=== PATIENT | female | born 1990 | race Two or more races ===

== ENCOUNTER → 2018-02-06 | Outpatient (CLI) | payer BC ==
[2018-02-06 10:19] LABS: Basophils # (auto) 0 uL; Basophils % (auto) 0.5 % (0.0-2.0); Eosinophils # (auto) 0.2 uL; Eosinophils % (auto) 2.1 % (0.0-7.0); Hematocrit 44.4 % (36.0-46.0); Hemoglobin 14.8 g/dL (12.2-16.2); Lymphocytes # (auto) 2.7 uL; Lymphocytes % (auto) 32.9 % (10.0-50.0); Mean Corpuscular Hemoglobin 29.9 pg (28.0-32.0); Mean Corpuscular Hgb Conc. 33.2 g/dL (32.0-36.0); Monocytes # (auto) 0.5 uL; Monocytes % (auto) 6.3 % (0.0-12.0); Neutrophils # (auto) 4.8 uL; Neutrophils % (auto) 58.2 % (37.0-80.0); Nucleated Red Blood Cells % 0.1 %; Platelet Count (auto) 267 10^3/uL (140-450); Red Blood Cells 4.94 10^6/uL (4.0-5.20); Red Cell Distribution Width 13.3 % (11.8-14.3); White Blood Cell 8.3 10^3/uL (4.4-10.8)
[2018-02-06 10:58] LABS: Follicle Stimulating Hormone 6.31 IU/L (SEE BELOW); Leuteinizing Hormone 7.8 IU/L; T3 Total 1.37 ng/mL (0.60-1.81)
[2018-02-06 12:12] LABS: Beta HCG, Quantitative < 1 mlU/mL (1-3); Thyroid Stimulating Hormone 2.79 uIU/mL (0.358-3.74)
[2018-02-06 13:39] LABS: Albumin 4.1 g/dL (3.4-5.0); BUN/Creatinine Ratio 9.4; Bilirubin, Total 0.5 mg/dL (0.2-1.0); Calcium 8.5 mg/dL (8.5-10.1); Potassium 4.2 mmol/L (3.5-5.1); Total Protein 8.7 g/dL (6.4-8.2)
== END | disposition home or self-care (01) ==
LOC: LAB 09:38
PROVIDERS: ATTEND Internal Medicine
DX: N91.1 Secondary amenorrhea (principal); E66.9 Obesity, unspecified; N60.29 Fibroadenosis of unspecified breast; Z83.3 Family history of diabetes mellitus; Z87.440 Personal history of urinary (tract) infections
CPT/HCPCS: 36415; 80053; 80061; 82306; 82670; 83001; 83002; 84443; 84480; 84702; 85025

== ENCOUNTER → 2018-03-17 | Outpatient (CLI) | payer BC ==
[2018-03-17 11:14] LABS: Albumin 3.8 g/dL (3.4-5.0); BUN/Creatinine Ratio 13.9; Bilirubin, Total 0.4 mg/dL (0.2-1.0); Calcium 8.5 mg/dL (8.5-10.1); Potassium 4.3 mmol/L (3.5-5.1); Total Protein 8.1 g/dL (6.4-8.2)
== END | disposition home or self-care (01) ==
LOC: LAB 10:02
PROVIDERS: ATTEND Internal Medicine
DX: R74.0 Nonspecific elevation of levels of transaminase and lactic acid dehydrogenase [LDH] (principal)
CPT/HCPCS: 36415; 80053

== ENCOUNTER → 2018-08-08 | Outpatient (CLI) | payer BC | END | disposition home or self-care (01) | LOC: LAB 14:59 | PROVIDERS: ATTEND Internal Medicine | DX: Z34.81 Encounter for supervision of other normal pregnancy, first trimester (principal); Z3A.01 Less than 8 weeks gestation of pregnancy | CPT/HCPCS: 36415; 84702 ==

== ENCOUNTER 2018-08-31 10:51 | Emergency (ER) | payer BC ==
[~2018-08-31] VITALS: Ht 152.4 cm; Wt 73.2 kg
[2018-08-31 12:08] LABS: Basophils # (auto) 0.1 uL; Basophils % (auto) 0.5 % (0.0-2.0); Eosinophils # (auto) 0.2 uL; Eosinophils % (auto) 2.3 % (0.0-7.0); Hemoglobin 14.1 g/dL (12.2-16.2); Lymphocytes # (auto) 1.9 uL; Lymphocytes % (auto) 17.7 % (10.0-50.0); Mean Corpuscular Hgb Conc. 33.5 g/dL (32.0-36.0); Mean Corpuscular Volume 89.6 fL (80.0-100.0); Monocytes # (auto) 0.7 uL; Neutrophils # (auto) 7.7 uL; Neutrophils % (auto) 72.5 % (37.0-80.0); Platelet Count (auto) 268 10^3/uL (140-450); Red Blood Cells 4.69 10^6/uL (4.0-5.20); Red Cell Distribution Width 13.8 % (11.8-14.3); White Blood Cell 10.6 10^3/uL (4.4-10.8)
[2018-08-31 12:15] LABS: Potassium 3.5 mmol/L (3.5-5.1)
[2018-08-31 12:25] LABS: Albumin 3.4 g/dL (3.4-5.0); BUN/Creatinine Ratio 11.1; Bilirubin, Total 0.3 mg/dL (0.2-1.0); Calcium 8.5 mg/dL (8.5-10.1)
[2018-08-31 12:42] LABS: INR 0.95 (0.9-1.15); Partial Thromboplastin Time 26.6 sec (23.78-33.04); Prothrombin Time 10.2 sec (9.27-12.13)
[2018-08-31 13:26] LABS: Urine Bacteria MOD /hpf (None Seen); Urine Blood 2+ /uL (Negative); Urine Specific Gravity 1.011 (1.001-1.035); Urine WBC 60 /hpf (0 - 5)
[2018-08-31 15:30] VITALS: BP 132/80
== END 2018-08-31 15:50 | disposition home or self-care (01) ==
LOC: ER 10:51
DX: O36.4XX9 Maternal care for intrauterine death, other fetus (principal); Z3A.10 10 weeks gestation of pregnancy
CPT/HCPCS: 36415; 76801; 76817; 80053; 81001; 84702; 85025; 85610; 85730; 86901

== ENCOUNTER 2018-09-02 15:56 | Emergency (ER) | payer BC ==
[~2018-09-02] VITALS: Ht 152.4 cm; Wt 74.8 kg
[2018-09-02 17:21] LABS: Basophils # (auto) 0 uL; Basophils % (auto) 0.4 % (0.0-2.0); Eosinophils # (auto) 0.4 uL; Eosinophils % (auto) 3.9 % (0.0-7.0); Hematocrit 40.5 % (36.0-46.0); Hemoglobin 13.4 g/dL (12.2-16.2); Lymphocytes # (auto) 2.8 uL; Lymphocytes % (auto) 28.4 % (10.0-50.0); Mean Corpuscular Hemoglobin 29.9 pg (28.0-32.0); Mean Corpuscular Volume 90.7 fL (80.0-100.0); Monocytes # (auto) 0.8 uL; Neutrophils # (auto) 5.8 uL; Neutrophils % (auto) 59.3 % (37.0-80.0); Nucleated Red Blood Cells % 0.1 %; Platelet Count (auto) 254 10^3/uL (140-450); Red Blood Cells 4.47 10^6/uL (4.0-5.20); Red Cell Distribution Width 13.8 % (11.8-14.3); White Blood Cell 9.8 10^3/uL (4.4-10.8)
[2018-09-02 19:49] VITALS: BP 145/96
[2018-09-02 20:05] LABS: Albumin 3.4 g/dL (3.4-5.0); BUN/Creatinine Ratio 12.3; Calcium 8.3 mg/dL (8.5-10.1)
[2018-09-02 20:07] LABS: Bilirubin, Total 0.2 mg/dL (0.2-1.0); Total Protein 8.2 g/dL (6.4-8.2)
[2018-09-02 20:11] LABS: Urine Bacteria NONE SEEN /hpf (None Seen); Urine Blood 1+ /uL (Negative); Urine Specific Gravity 1.023 (1.001-1.035); Urine WBC 2 /hpf (0 - 5)
[2018-09-02 20:22] LABS: INR 0.93 (0.9-1.15); Partial Thromboplastin Time 26.9 sec (23.78-33.04)
[2018-09-02] MEDS ORDERED: LACTULOSE 20Gm/30ML SOLN PO ONE (20:30)
[2018-09-02] MEDS ORDERED: LACTULOSE 20Gm/30ML SOLN ONE (20:34)
== END 2018-09-02 20:49 | disposition home or self-care (01) ==
LOC: ER 15:59
DX: K56.41 Fecal impaction (principal); Z90.49 Acquired absence of other specified parts of digestive tract; Z88.0 Allergy status to penicillin
CPT/HCPCS: 36415; 74176; 80053; 81001; 84702; 85025; 85610; 85730

== ENCOUNTER 2025-06-07 19:59 | Emergency (ER) | payer BC, OTHER ==
[~2025-06-07] VITALS: Ht 152.4 cm; Wt 80.0 kg
--- NOTE | 2025-06-07 20:39 | ED.PDOC ---
History of Present Illness HPI Comments 34-year-old female with a history of UTIs, presents from [facility] urgent care facility with chief complaint of nonradiating, suprapubic abdominal pain. Patient does have some sudden, unprovoked, atraumatic onset of constant pain, with no prior history of at 3:00 p.m.. Pain worsens with movement. No improvement or relief with [id number] Tylenol medication use. Patient reports associated nausea and pain with urination. She was evaluated for symptoms and referred to ED from urgent care, earlier, to rule out ovarian torsion after being found with a 4.1 cm ovarian cyst to her right ovary be a CT scan after urine test showed negative for UTI. Last menstrual period was on 05/19/2025. Patient denies having any chest pain, shortness of breath, vomiting, hematuria, or further acute symptoms. Chief Complaint: Pelvic Pain Time Seen by MD: 20:20 Primary Care Provider: ADALGISA Reviewed Notes: Nurses Notes, Medications, Allergies Allergies: Coded Allergies: Penicillins (Verified Allergy, Intermediate, rash, 09/02/18) Information Source: Patient Mode of Arrival: Ambulatory Severity: Moderate Timing: Hours Duration: Since onset Prehospital treatment: Other (See HPI) Past Medical History PAST MEDICAL HISTORY: UTI'S Surgical History: Cholecystectomy LMP 05/19/25 Family History Family History: Unknown Social History Smoker: Non-Smoker Alcohol: Denies ETOH Use Drugs: Denies Drug Use Lives In: Home All Other Systems: Reviewed and Negative (Comprehensive review of systems are negative unless otherwise stated in HPI) Physical Exam General Appearance: No Apparent Distress, Obese, Other (Uncontrolled appearing, mild) HEENT: Normal ENT Inspection, Pharynx Normal, TMs Normal Neck: Full Range of Motion, Non-Tender, Normal, Normal Inspection Respiratory: Chest Non-Tender, Lungs Clear, No Accessory Muscle Use, No Respiratory Distress, Normal Breath Sounds Cardiovascular: No Edema, No JVD, No Murmur, No Gallop, Normal Peripheral Pulses, Regular Rate/Rhythm Breast Exam: Deferred Gastrointestinal: No Organomegaly, No Pulsatile Mass, Normal Bowel Sounds, Soft, Suprapubic (Tenderness), Tenderness (Superapubic region) Genitalia: Deferred Pelvic: Deferred Rectal: Deferred Extremities: No calf tenderness, Normal capillary refill, Normal inspection, Normal range of motion, Non-tender, No pedal edema Musculoskeletal : Apperance: Normal Neurologic: Alert, spinner operator II-XII nml as Tested, No Motor Deficits, Normal Affect, Normal Mood, No Sensory Deficits Cerebellar Function: Normal Reflexes: Normal Skin: Dry, Normal Color, Warm Lymphatic: No Adenopathy Was a procedure done? Was a procedure done?: No Differential Dx Considerations may include: Ovarian cyst, ovarian torsions, UTIs, PID, vaginitis, among others X-Ray, Labs, Meds, VS Vital Signs Date Time Temp Pulse Resp B/P (MAP) Pulse Ox O2 Delivery O2 Flow Rate FiO2 06/07/25 21:28 98.9 93 18 123/93 (103) 100 98.9 06/07/25 20:01 99.1 87 20 154/105 99 99.1 Lab Test 06/07/25 21:05 06/07/25 20:37 06/07/25 12:05 Range/Units Urine Test Negative Negative White Blood Count 17.6 H 4.4-10.8 10^3/uL Red Blood Count 4.73 4.0-5.20 10^6/uL Hemoglobin 13.5 12.2-16.2 g/dL Hematocrit 42.1 36.0-46.0 % Mean Corpuscular Volume 88.9 80.0-100.0 fL Mean Corpuscular Hemoglobin 28.6 28.0-32.0 pg Mean Corpuscular Hemoglobin Concent 32.2 32.0-36.0 g/dL Red Cell Distribution Width 13.9 11.8-14.3 % Platelet Count 299 140-450 10^3/uL Mean Platelet Volume 8.6 6.9-10.8 fL Neutrophils (%) (Auto) 70.1 37.0-80.0 % Lymphocytes (%) (Auto) 22.1 10.0-50.0 % Monocytes (%) (Auto) 6.0 0.0-12.0 % Eosinophils (%) (Auto) 1.5 0.0-7.0 % Basophils (%) (Auto) 0.3 0.0-2.0 % Neutrophils # (Auto) 12.3 H 1.6-8.6 10 ^3/uL Lymphocytes # (Auto) 3.9 0.4-5.4 10 ^3/uL Monocytes # (Auto) 1.1 0-1.3 10 ^3/uL Eosinophils # (Auto) 0.3 0-0.8 10 ^3/uL Basophils # (Auto) 0.1 0-0.2 10 ^3/uL Nucleated Red Blood Cells 0.1 % Sodium Level 134 L 136-145 mmol/L Potassium Level 4.0 3.5-5.1 mmol/L Chloride Level 101 98-107 mmol/L Carbon Dioxide Level 25 20-31 mmol/L Anion Gap 8 5-15 Blood Urea Nitrogen 9 9-23 mg/dL Creatinine 0.63 0.550-1.02 mg/dL Glomerular Filtration Rate Calc 118 >90 mL/min BUN/Creatinine Ratio 14.3 10.0-20.0 Serum Glucose 75 74-106 mg/dL Calcium Level 9.5 8.7-10.4 mg/dL Lipase 36 12-53 U/L Urine Color Light-yellow Yellow Urine Clarity Clear Clear Urine pH 6.0 5.0-9.0 Urine Specific [place] 1.050 H 1.001-1.035 Urine Protein Negative Negative Urine Ketones Negative Negative Urine Blood Negative Negative /uL Urine Nitrite Negative Negative Urine Bilirubin Negative Negative Urine Urobilinogen Normal Negative mg/dL Urine Leukocyte Esterase Trace Negative /uL Urine RBC 4 0 - 4 /hpf Urine Microscopic WBC 4 0-5 /HPF Urine Squamous Epithelial Cells Few <5 /hpf Urine Bacteria None seen None Seen /hpf Urine Glucose Normal Normal mg/dL [place] [address] Ph: [phone] DIAGNOSTIC IMAGING Diagnostic Imaging Report : [id number] Signed PATIENT: DAVID DC ACCT: [id number] UNIT: [id number] : 1990 LOC: ER ROOM / BED: / AGE / SEX: 34 / F ADM STATUS: REG ER SERVICE 26 ORDERING PHYSICIAN: JOHNIE SANCHEZ MD PROCEDURE(s): PELUS - PELVIC REASON: PELVIC PAIN, ovarian cyst, r/o torsion ORDER NUMBER(s): [id number], ACCESSION NUMBER(s): [id number] Procedure: US PELVIC 06/07/2025 08:44 PM Indication: PELVIC PAIN, ovarian cyst, r/o torsion Comparison: CT ABD PELVIS W on DOS: 06/07/25 Technique: Real-time grayscale and color images were obtained . FINDINGS: UTERUS: Anteverted, measuring 10.4 x 4.7 x 4.7 cm in length. Homogeneous myometrium without a discrete lesion. ENDOMETRIAL STRIPE: 5 mm in thickness. Homogenous echotexture. No fluid in the endometrial canal. CERVIX: Small cyst seen in the region of the cervix. RIGH OVARY: 5.5 x 3.3 x 3.9 cm in length. 37 mL in volume. Preserved vascular flow. 3.5 cm cystic lesion with internal septations. LEFT OVARY: 2.5 x 2.1 x 2.2 cm in length. 6.1 mL in volume. Preserved vascular flow. No suspicious lesions identified. CUL-DE-SAC: No significant fluid noted. OTHER: None. IMPRESSION: 1. 3.5 cm complex right adnexal cyst. A 6-12 week follow-up is suggested to ensure appropriate resolution. ATED BY: JOSE R AWAD MD DICTATED DATE/TIME: 06/07/252103 SIGNED BY: JOSE R AWAD MD SIGNED DATE/TIME: 06/07/252103 CC: X-Ray, Labs, Meds, VS Comment Patient presenting with suprapubic abdominal pain and dysuria for the past day. Sent from urgent Care for CT abdomen and pelvis concerning for ovarian cysts and sent in to rule out ovarian torsion. Lab work (CBC, BMP) to evaluate for evidence of severe anemia, electrolyte abnormality including hypokalemia, hyperkalemia, hypernatremia, hyponatremia, hyperglycemia, hypoglycemia, etc. Urinalysis to evaluate for hematuria Or infection Pelvic ultrasound to evaluate for ovarian torsion, cyst, ectopic , etc. Re-evaluate Social determinant surveillance affecting care: Poor access to outpatient care/followup (provided outpatient resources) Time of 1ST Reevaluation: 21:00 Reevaluation 1ST: Unchanged Patient Education/Counseling: Diagnosis, Treatment, Need For Follow Up Family Education/Counseling: No Family Present SEPSIS Sepsis Screen Date sepsis recognized/suspect: Jun 07, 2025 Time Sepsis recognized/suspect: 2000 Recent Procedure: No On Antibiotic Therapy: No Respiratory Rate >20: No Heart Rate >90: No Temp<36 C (96.8 F) or >38.3 C: No SBP <90 or MAP <65 mmHG: No New Acute Mental Status Change: No Is the patient on CPAP, BIPAP,: No Physician Orders Pelvic (06/07/25 20:27) Vital Signs Date Time Temp Pulse Resp B/P (MAP) Pulse Ox O2 Delivery O2 Flow Rate FiO2 06/07/25 21:28 98.9 93 18 123/93 (103) 100 98.9 06/07/25 20:01 99.1 87 20 154/105 99 99.1 Laboratory Tests Test 06/07/25 20:37 White Blood Count 17.6 10^3/uL (4.4-10.8) H Departure 1 Departure Time of Disposition: 22:00 (On reassessment, patient's symptoms improved. Found to have leukocytosis, however labs, urinalysis, imaging otherwise unremarkable. Repeat abdominal exam soft, nontender, nondistended. Patient tolerating p.o.. Given strict return precautions and PMD follow-up.) Impression: Primary Impression: Acute suprapubic pain Additional Impressions: Nausea Ovarian cyst Disposition: HOME / SELF CARE / HOMELESS Condition: Stable Additional Instructions: You have an ovarian cyst. Follow up with your data science and iot manager for further evaluation of this. Discharged With: Self Critical Care Note Critical Care Time?: No Stability Stability form required: No Heart Score Heart Score: Heart Score Response (Comments) Value History N/A 0 EKG N/A 0 Age N/A 0 Risk Factors N/A 0 Troponin N/A 0 Total 0 I personally scribed for JOHNIE SANCHEZ MD ([employer]) on 06/07/25 at 20:39. Electronically submitted by Marcos Darby ([email or web address]). I personally scribed for JOHNIE SANCHEZ MD ([employer]) on 06/07/25 at 21:12. Electronically submitted by Marcos Darby ([email or web address]). JOHNIE SANCHEZ MD Jun 07, 2025 20:39
[2025-06-07 20:55] LABS: Chloride 101 mmol/L (98-107); Potassium 4.0 mmol/L (3.5-5.1)
[2025-06-07 20:56] LABS: Anion Gap 8 (5-15); Carbon Dioxide 25 mmol/L (20-31)
[2025-06-07 20:57] LABS: Calcium 9.5 mg/dL (8.7-10.4); Hematocrit 42.1 % (36.0-46.0); Hemoglobin 13.5 g/dL (12.2-16.2); Mean Corpuscular Hemoglobin 28.6 pg (28.0-32.0); Mean Corpuscular Volume 88.9 fL (80.0-100.0); Nucleated Red Blood Cells % 0.1 %
[2025-06-07 21:01] LABS: BUN/Creatinine Ratio 14.3 (10.0-20.0); Glucose 75 mg/dL (74-106)
[2025-06-07 21:02] LABS: Lipase 36 U/L (12-53)
[2025-06-07 21:06] LABS: Blood Urea Nitrogen 9 mg/dL (9-23); Sodium 134 mmol/L (136-145)
--- NOTE | 2025-06-07 21:07 | DVH ---
Procedure: US PELVIC 06/07/2025 08:44 PM Indication: PELVIC PAIN, ovarian cyst, r/o torsion Comparison: CT ABD PELVIS W on DOS: 06/07/25 Technique: Real-time grayscale and color images were obtained . FINDINGS: UTERUS: Anteverted, measuring 10.4 x 4.7 x 4.7 cm in length. Homogeneous myometrium without a discrete lesion. ENDOMETRIAL STRIPE: 5 mm in thickness. Homogenous echotexture. No fluid in the endometrial canal. CERVIX: Small cyst seen in the region of the cervix. RIGH OVARY: 5.5 x 3.3 x 3.9 cm in length. 37 mL in volume. Preserved vascular flow. 3.5 cm cystic lesion with internal septations. LEFT OVARY: 2.5 x 2.1 x 2.2 cm in length. 6.1 mL in volume. Preserved vascular flow. No suspicious lesions identified. CUL-DE-SAC: No significant fluid noted. OTHER: None. IMPRESSION: 1. 3.5 cm complex right adnexal cyst. A 6-12 week follow-up is suggested to ensure appropriate resolution.
[2025-06-07 21:28] VITALS: BP 123/93; TEMP 98.9
[2025-06-07 21:33] LABS: Urine Protein, UAD Negative (Negative)
[2025-06-07 22:00] VITALS: PULSE 93; RESP 18; O2SAT 100
== END 2025-06-07 22:10 | disposition home or self-care (01) ==
LOC: ER 20:05
DX: N83.209 Unspecified ovarian cyst, unspecified side (principal); R10.30 Lower abdominal pain, unspecified; R11.0 Nausea; Z90.49 Acquired absence of other specified parts of digestive tract; Z88.0 Allergy status to penicillin; Z79.899 Other long term (current) drug therapy
CPT/HCPCS: 36415; 76856; 80048; 81001; 81025; 83690; 85025